=== PATIENT | male | born 1975 | race Caucasian/White ===

== ENCOUNTER 2016-09-08 23:02 | Emergency (ER) | payer BC | END 2016-09-09 02:52 | disposition home or self-care (01) | LOC: ER 23:02 | DX: R07.89 Other chest pain (principal); F17.210 Nicotine dependence, cigarettes, uncomplicated; Z90.49 Acquired absence of other specified parts of digestive tract; Z79.899 Other long term (current) drug therapy; Z88.2 Allergy status to sulfonamides | CPT/HCPCS: 36415; 87502 ==

== ENCOUNTER 2016-10-29 19:52 | Observation (INO) | payer SELFPAY ==
[~2016-10-29] VITALS: Ht 199.4 cm; Wt 100.2 kg
== END 2016-10-31 12:20 ==
LOC: ER 19:52 → MED 10-30 00:23
PROVIDERS: ADMIT Internal Medicine
DX: I25.10 Atherosclerotic heart disease of native coronary artery without angina pectoris (principal); I50.9 Heart failure, unspecified; K21.9 Gastro-esophageal reflux disease without esophagitis; I44.7 Left bundle-branch block, unspecified; F17.210 Nicotine dependence, cigarettes, uncomplicated; Z79.82 Long term (current) use of aspirin; Z79.02 Long term (current) use of antithrombotics/antiplatelets; Z79.899 Other long term (current) drug therapy; Z88.2 Allergy status to sulfonamides; Z90.49 Acquired absence of other specified parts of digestive tract
CPT/HCPCS: 36415; 78452; 93017; 93306; 96372; G0378; J1650; J2785

== ENCOUNTER 2016-10-29 19:52 | Emergency (ER) | payer SELFPAY | END 2016-10-30 00:22 | disposition critical access hospital (66) | LOC: ER 19:52 | DX: R07.2 Precordial pain (principal); R94.31 Abnormal electrocardiogram [ECG] [EKG]; R06.02 Shortness of breath; K21.9 Gastro-esophageal reflux disease without esophagitis; F17.210 Nicotine dependence, cigarettes, uncomplicated; Z90.49 Acquired absence of other specified parts of digestive tract; Z88.2 Allergy status to sulfonamides ==